=== PATIENT | male | born 1960 | race African-American/Black ===

== ENCOUNTER → 2023-04-14 | Day surgery (SDC) | payer OTHER, MEDICARE ==
[~2023-04-14] MED LIST: ALLOPURINOL300 MG PO; ASPIRIN EC81 MG PO; CARVEDILOL3.125 MG PO; CENTRUM ADULTS1 EACH PO; CRESTOR10 MG PO; FOLIC ACID0.4 MG PO; LACTATED RINGER'S 1,000 ML ONE; LIDOCAINE HCL 2% LOCAL INJ 5 ML SDV VIAL INJ ONE; LISINOPRIL-HCT1 EAC1 PO; MIDAZOLAM HCL 2 MG/2 ML VIAL ONE; MONTELUKAST SOD10 MG PO; OTEZLA30 MG PO; OXYBUTYNIN CHLOR5 MG PO; PROPOFOL IV EMULSION 10 MG/ML 20 ML VIAL ONE; TRULICITY4.5 MG/0.5 SC; VITAMIN B-121000 MCG PO; VITAMIN D3 COM1 EACH PO
[2023-04-14 13:45] VITALS: BP 106/67; PULSE 70; RESP 16; O2SAT 99
== END | disposition home or self-care (01) ==
LOC: OR 10:40
PROVIDERS: ATTEND Internal Medicine Gastroenterology
DX: Z12.11 Encounter for screening for malignant neoplasm of colon (principal); D12.2 Benign neoplasm of ascending colon; K57.30 Diverticulosis of large intestine without perforation or abscess without bleeding; K64.8 Other hemorrhoids; I10 Essential (primary) hypertension; E78.5 Hyperlipidemia, unspecified; R01.1 Cardiac murmur, unspecified; M06.9 Rheumatoid arthritis, unspecified; M19.90 Unspecified osteoarthritis, unspecified site; Z88.6 Allergy status to analgesic agent; Z01.810 Encounter for preprocedural cardiovascular examination; Z79.82 Long term (current) use of aspirin; Z79.899 Other long term (current) drug therapy; Z68.30 Body mass index [BMI] 30.0-30.9, adult
CPT/HCPCS: 36415; 45384; 82948; 88305; 93005; J2001; J2704; J7121; 45380; 45385; J2250